=== PATIENT | female | born 1970 | race Caucasian/White ===

== ENCOUNTER 2017-01-22 08:43 | Emergency (ER) | payer BC ==
[2017-01-22 08:52] VITALS: BP 143/107
[2017-01-22] MEDS ORDERED: Morphine INJ* 4 MG/ML 1 ML SYRINGE IV ONE (09:22)
[2017-01-22] MEDS ORDERED: Ondansetron INJ* 2 MG/ML VIAL IV ONE (09:22)
[2017-01-22 10:07] LABS: Hematocrit 45 % (35-47); Hemoglobin 15.1 g/dl (12.0-16.0); Mean Corpuscular HGB Conc 34 g/dl (31-36); Mean Corpuscular Hemoglobin 33 pg (27-31); Mean Corpuscular Volume 97 fL (80-97); Mean Platelet Volume 10 um3 (7.4-10.4); Red Blood Count 4.65 10^6/ul (4.0-5.4); Red Cell Distribution Width 13 % (10.5-15); White Blood Count 10.2 10^3/ul (3.5-10.8)
[2017-01-22 10:26] LABS: Albumin 4.4 g/dL (3.2-5.2); BUN/Creatinine Ratio 14.5 (8-20); C Reactive Protein 2.17 mg/L (< 5.00); Calcium 9.5 mg/dL (8.6-10.3); EGFR Non-African American 74.7 (>60); Globulin 2.9 g/dL (2-4); Potassium 4.1 mmol/L (3.5-5.0); Total Bilirubin 0.6 mg/dL (0.2-1.0); Total Protein 7.3 g/dL (6.4-8.9)
[2017-01-22 11:04] LABS: Urine Bilirubin Negative (Negative); Urine Glucose Negative (Negative); Urine Nitrite Negative (Negative)
--- NOTE | 2017-01-22 11:14 | RAD ---
INDICATION: Arterial occlusion. Cyanotic hand COMPARISON: None TECHNIQUE: Duplex interrogation of the left upper extremity was performed FINDINGS: There is arterial patency throughout. The waveforms and velocities are normal. The palmar arch is patent. The prosthesis in CM per second are as follows: Common carotid artery-114; subclavian artery-101; axillary artery-98; brachial artery (proximal/mid/distal)-97, 103, 93; radial artery (proximal/mid/distal)-53, 51, 46; ulnar artery (proximal/mid/distal)-46, 51, 44 Lazaro arch (fifth digit)-37; pulmonary arch (first digit)-23 cm/s. Velocities in the contralateral (right) common and subclavian arteries are 89 and 107 cm second, respectively. IMPRESSION: NORMAL STUDY.
--- NOTE | 2017-01-22 12:41 | RAD ---
HISTORY: Left wrist and hand pain COMPARISONS: None VIEWS: 5, Frontal, lateral, and oblique views of the left wrist, with frontal and lateral views of the left hand FINDINGS: BONE DENSITY: Normal. BONES: There is no displaced fracture. JOINTS: There is no arthropathy. ALIGNMENT: There is no dislocation. SOFT TISSUES: Unremarkable. OTHER FINDINGS: None. IMPRESSION: NO ACUTE OSSEOUS INJURY OF THE LEFT WRIST AND LEFT HAND. IF SYMPTOMS PERSIST, RECOMMEND REPEAT IMAGING.
[2017-01-22] MEDS ORDERED: Acetaminophen TAB* 325 MG PO ONE (12:57)
[2017-01-22] MEDS ORDERED: Ibuprofen TAB* 600 MG PO ONE (12:57)
--- NOTE | 2017-01-22 14:08 | ED ---
Eder Cueto SooYoung, scribed for Hero Bejarano MD on 01/22/17 at 0905 . Upper Extremity Pain - HPI Summary HPI Summary: A 46 y/o F presents to ED with c/o worsening L hand pain onset two days ago. Associated sx: edema, decreased ROM, cool to touch onset yesterday. Pain radiates from L elbow down L hand. Pt reports no sx in LE or RUE. She is primarily R-hand dominant. Ice does not alleviate the pain. Denies having had an IV inserted over past few weeks; denies trauma. PMHx is negative for DM, DVT and HDL. Non-drinker. Smoker. Denies taking blood thinners. PMHx and SHx: tendonitis in arm; neck surgery. Pt works with metal. - History of Current Complaint Chief Complaint: EDExtremityUpper Stated Complaint: LT ARM NUMBNESS,SWELLING Time Seen by Provider: 01/22/17 09:01 Hx Obtained From: Patient Onset/Duration: Started Days Ago, Still Present Timing: Constant Severity Initially: Moderate Severity Currently: Moderate Pain Location: Elbow - L, Forearm - L, Hand - L Associated Signs & Symptoms: Positive: Swelling, Other - decreased ROM, cool to touch Related History: Dominant Hand Right - Allergies/Home Medications Allergies/Adverse Reactions: Allergies Allergy/AdvReac Type Severity Reaction Status Date / Time Amoxicillin Allergy Hives Verified 09/02/14 11:38 Azithromycin [From Zithromax] Allergy Hives Verified 09/02/14 11:38 Cephalexin Allergy THICK Verified 09/02/14 11:38 DISCHARGE Clarithromycin Allergy FACE RED Verified 09/02/14 11:38 [From Biaxin XL] AND PIMPLY Clavulanic Acid Allergy FAT LIPS Verified 09/02/14 11:38 [From Augmentin] Doxycycline Allergy Hives Verified 09/02/14 11:38 Hydrocodone Allergy FELT LIKE Verified 09/02/14 11:38 SHE WAS IN A STUPOR AND DID NOT WORK Levofloxacin [From Levaquin] Allergy Hives Verified 09/02/14 11:38 Metronidazole Allergy Dizziness Verified 09/02/14 11:38 TWO OTHER UNKNOWN MEDICATIONS Allergy SHAKY Uncoded 09/02/14 11:38 PMH/Surg Hx/FS Hx/Imm Hx Previously Healthy: No Endocrine/Hematology History: Denies: Hx Diabetes Cardiovascular History: Denies: Hx Hypertension, Hx Pacemaker/ICD Respiratory History: Denies: Hx Asthma History: Denies: Hx Dialysis, Hx Renal Disease Musculoskeletal History: Reports: Hx Tendonitis - RIGHT HAND Sensory History: Reports: Hx Contacts or Glasses - READING GLASSES Denies: Hx Hearing Aid Opthamlomology History: Reports: Hx Contacts or Glasses - READING GLASSES Neurological History: Reports: Hx Headaches - BEFORE AND DURING PERIOD, Hx Migraine - WHEN SNOW MELTS Psychiatric History: Denies: Hx Panic Disorder - Surgical History Surgery Procedure, Year, and Place: RIGHT ANKLE STABILIZATION(METAL PLACED)2006 , [place] Hx Anesthesia Reactions: No Infectious Disease History: No Infectious Disease History: Denies: Traveled Outside the [place] in Last 30 Days - Family History Known Family History: Positive: Other - DVTs - Social History Occupation: Employed Full-time Lives: With Family - friend Alcohol Use: Rare Hx Substance Use: No Substance Use Type: Reports: None Hx Tobacco Use: Yes Smoking Status (MU): Light Every Day Tobacco Smoker Type: Cigarettes Amount Used/How Often: 1/2 PPD Length of Time of Smoking/Using Tobacco: 20 + YEAR. Review of Systems Negative: Fever Positive: Myalgia - pain from L elbow to L hand, Decreased ROM, Edema Positive: Other - LUE cool to touch All Other Systems Reviewed And Are Negative: Yes Physical Exam - Summary Physical Exam Summary: The patient is well-nourished in MILD distress and in no acute pain. The skin is dry and skin color reflects adequate perfusion. HEENT: The head is normocephalic and atraumatic. The pupils are equal and reactive. The conjunctivae are clear and without drainage. Nares are patent and without drainage. Mouth reveals moist mucous membranes and the throat is without erythema and exudate. The external ears are intact. The ear canals are patent and without drainage. The tympanic membranes are intact. Neck is supple with full range of motion and non-tender. There are no carotid bruits. There is no neck vein distension. Respiratory: Chest is non-tender. Lungs are clear to auscultation and breath sounds are symmetrical and equal. Cardiovascular: Heart is regular rate and rhythm. There is no murmur or rub auscultated. There is no peripheral edema. Femoral pulses are symmetrical and equal. Abdomen: The abdomen is OBESE, soft and non-tender. There are normal bowel sounds heard in all four quadrants and there is no organomegaly palpated. Musculoskeletal: There is no back pain noted. There is no peripheral edema or calf tenderness elicited. RUE: GOOD PULSES AND ROM, BRISK CAP REFILL, WARM TO TOUCH. LUE: COOLNESS FROM ELBOW DISTALLY, COOL TO TOUCH, DECREASED ROM, CAP REFILL 3-4 SECONDS, CYANOSIS AT NAILBED; PALPATED BRACHIAL, RADIAL AND ULNAR PULSES. UNABLE TO ASSESS FUNCTION OF RADIAL, MEDIAN, AND ULNAR NERVE. UNABLE TO PRONATE AND SUPINATE ELBOW. Neurological: Patient is alert and oriented to person, place and time. Cranial nerves are grossly intact. Psychiatric: MILDLY ANXIOUS. Triage Information Reviewed: Yes Vital Signs On Initial Exam: Initial Vitals Temp Pulse Resp BP Pulse Ox 98.1 F 83 20 143/107 98 01/22/17 08:46 01/22/17 08:46 01/22/17 08:46 01/22/17 08:46 01/22/17 08:46 Vital Signs Reviewed: Yes Diagnostics - Vital Signs Vital Signs Temp Pulse Resp BP Pulse Ox 01/22/17 08:50 98.1 F 75 20 143/107 99 01/22/17 08:46 98.1 F 83 20 143/107 98 - Laboratory Lab Results: Lab Results 01/22/17 01/22/17 01/22/17 Range/Units 10:00 10:00 10:00 WBC 10.2 (3.5-10.8) 10^3/ul RBC 4.65 (4.0-5.4) 10^6/ul Hgb 15.1 (12.0-16.0) g/dl Hct 45 (35-47) % MCV 97 (80-97) fL MCH 33 H (27-31) pg MCHC 34 (31-36) g/dl RDW 13 (10.5-15) % Plt Count 208 (150-450) 10^3/ul MPV 10 (7.4-10.4) um3 Neut % (Auto) 50.7 (38-83) % Lymph % (Auto) 40.8 (25-47) % [place] % (Auto) 6.1 (1-9) % Eos % (Auto) 1.4 (0-6) % Baso % (Auto) 1.0 (0-2) % Absolute Neuts (auto) 5.2 (1.5-7.7) 10^3/ul Absolute Lymphs (auto) 4.2 (1.0-4.8) 10^3/ul Absolute Monos (auto) 0.6 (0-0.8) 10^3/ul Absolute Eos (auto) 0.1 (0-0.6) 10^3/ul Absolute Basos (auto) 0.1 (0-0.2) 10^3/ul Absolute Nucleated RBC 0.01 10^3/ul Nucleated RBC % 0.1 INR (Anticoag Therapy) 0.94 (0.89-1.11) APTT 27.5 (26.0-36.3) seconds Sodium (133-145) mmol/L Potassium (3.5-5.0) mmol/L Chloride (101-111) mmol/L Carbon Dioxide (22-32) mmol/L Anion Gap (2-11) mmol/L BUN (6-24) mg/dL Creatinine (0.51-0.95) mg/dL Est GFR ( Amer) (>60) Est GFR (Non-Af Amer) (>60) BUN/Creatinine Ratio (8-20) Glucose (70-100) mg/dL Lactic Acid 1.5 (0.5-2.0) mmol/L Calcium (8.6-10.3) mg/dL Total Bilirubin (0.2-1.0) mg/dL AST (13-39) U/L ALT (7-52) U/L Alkaline Phosphatase (34-104) U/L Total Creatine Kinase (10-223) U/L C-Reactive Protein (< 5.00) mg/L Total Protein (6.4-8.9) g/dL Albumin (3.2-5.2) g/dL Globulin (2-4) g/dL Albumin/Globulin Ratio (1-3) Urine Color Urine Appearance Urine pH (5-9) Ur Specific [place] (1.010-1.030) Urine Protein (Negative) Urine Ketones (Negative) Urine Blood (Negative) Urine Nitrate (Negative) Urine Bilirubin (Negative) Urine Urobilinogen (Negative) Ur Leukocyte Esterase (Negative) Urine Glucose (Negative) 01/22/17 01/22/17 Range/Units 10:00 10:50 WBC (3.5-10.8) 10^3/ul RBC (4.0-5.4) 10^6/ul Hgb (12.0-16.0) g/dl Hct (35-47) % MCV (80-97) fL MCH (27-31) pg MCHC (31-36) g/dl RDW (10.5-15) % Plt Count (150-450) 10^3/ul MPV (7.4-10.4) um3 Neut % (Auto) (38-83) % Lymph % (Auto) (25-47) % [place] % (Auto) (1-9) % Eos % (Auto) (0-6) % Baso % (Auto) (0-2) % Absolute Neuts (auto) (1.5-7.7) 10^3/ul Absolute Lymphs (auto) (1.0-4.8) 10^3/ul Absolute Monos (auto) (0-0.8) 10^3/ul Absolute Eos (auto) (0-0.6) 10^3/ul Absolute Basos (auto) (0-0.2) 10^3/ul Absolute Nucleated RBC 10^3/ul Nucleated RBC % INR (Anticoag Therapy) (0.89-1.11) APTT (26.0-36.3) seconds Sodium 136 (133-145) mmol/L Potassium 4.1 (3.5-5.0) mmol/L Chloride 108 (101-111) mmol/L Carbon Dioxide 23 (22-32) mmol/L Anion Gap 5 (2-11) mmol/L BUN 12 (6-24) mg/dL Creatinine 0.83 (0.51-0.95) mg/dL Est GFR ( Amer) 96.0 (>60) Est GFR (Non-Af Amer) 74.7 (>60) BUN/Creatinine Ratio 14.5 (8-20) Glucose 91 (70-100) mg/dL Lactic Acid (0.5-2.0) mmol/L Calcium 9.5 (8.6-10.3) mg/dL Total Bilirubin 0.60 (0.2-1.0) mg/dL AST 15 (13-39) U/L ALT 16 (7-52) U/L Alkaline Phosphatase 63 (34-104) U/L Total Creatine Kinase 47 (10-223) U/L C-Reactive Protein 2.17 (< 5.00) mg/L Total Protein 7.3 (6.4-8.9) g/dL Albumin 4.4 (3.2-5.2) g/dL Globulin 2.9 (2-4) g/dL Albumin/Globulin Ratio 1.5 (1-3) Urine Color Straw Urine Appearance Clear Urine pH 7.0 (5-9) Ur Specific [place] 1.008 L (1.010-1.030) Urine Protein Negative (Negative) Urine Ketones Negative (Negative) Urine Blood Negative (Negative) Urine Nitrate Negative (Negative) Urine Bilirubin Negative (Negative) Urine Urobilinogen Negative (Negative) Ur Leukocyte Esterase Negative (Negative) Urine Glucose Negative (Negative) Result Diagrams: 01/22/17 10:00 01/22/17 10:00 Lab Statement: Any lab studies that have been ordered have been reviewed, and results considered in the medical decision making process. - Radiology WRIST XR Xray Interpretation: No Acute Changes - IMPRESSION: NO ACUTE OSSEOUS INJURY OF THE LEFT WRIST AND LEFT HAND. IF SYMPTOMS PERSIST, RECOMMEND REPEAT IMAGING. Radiology Interpretation Completed By: Radiologist HAND XR Xray Interpretation: No Acute Changes - IMPRESSION: NO ACUTE OSSEOUS INJURY OF THE LEFT WRIST AND LEFT HAND. IF SYMPTOMS PERSIST, RECOMMEND REPEAT IMAGING. Radiology Interpretation Completed By: Radiologist - Ultrasound No standard instances Ultrasound Interpretation: No Acute Changes - UE Venous, IMPRESSION: Normal study. Ultrasound Interpretation Completed By: Radiologist Re-Evaluation - Re-Evaluation 1 Re-Evaluation Time: 11:29 Change: Improved Comment: Discussing diagnostic results with pt. Does not want any more pain meds. Upon brief PE: pain is located in thumb at the thenar eminence. FROM at wrist, referred pain in hypothenar eminence. Will order thumb and wrist XR. 2 Re-Evaluation Time: 12:58 Comment: Discussing XR results. Will D/C home with splint, naproxen; F/U with [facility], ortho. Course/Dx - Course Course Of Treatment: Pt is a 46 y/o F presenting with worsening L hand pain onset two days ago. Associated sx: edema, decreased ROM, cool to touch onset yesterday. Pain radiates from L elbow down L hand. Pt reports no sx in LE or RUE. Denies having had an IV inserted over past few weeks; denies trauma. PMHx is negative for DM, DVT and HDL. Non-drinker. Smoker. Denies taking blood thinners. PMHx and SHx: tendonitis in arm; neck surgery. Pt works with metal. 0915: Consult with radiology, Dr. Lindo, recommends arterial doppler of LUE. Pt given morphine, Zofran, motrin, tylenol in ED. Labs are WNL except elevated MCH. UA is nml except specific gravity of 1.008. Venous Doppler shows no acute finding. Wrist XR and Hand XR shows no acute finding. Will D/C home with splint , naproxen; advised to f/u with ortho. Pt voiced understanding. - Diagnoses Differential Diagnosis/HQI/PQRI: Positive: Other - vascular injury vs nerve injury, raynaud, median nerve entrapment, radial nerve entrapment, arthritis Provider Diagnoses: Left arm pain, Radiculopathy Discharge - Discharge Plan Condition: Stable Disposition: HOME Prescriptions: Naproxen TAB* [Naprosyn 250 mg TAB*] 500 mg PO BID #60 tab Patient Education Materials: Naproxen (By mouth), Splint Care (ED), Arm Pain ( ED) Forms: *Work Release Referrals: Clayton Qureshi MD [Primary Care Provider] - [facility] [Outside] Chuy Rendon MD [Medical Doctor] - 7 Days (Follow up with Dr. Rendon within the next week.) Additional Instructions: Follow up with Dr. Rendon, ortho, within the week. Please return to the ED if you experience new or worsening symptoms. The documentation as recorded by the Eder barnes SooYoung accurately reflects the service I personally performed and the decisions made by , Hero Bejarano MD.
== END 2017-01-22 14:34 | disposition home or self-care (01) ==
LOC: ED 08:43
DX: M79.602 Pain in left arm (principal); M54.10 Radiculopathy, site unspecified
CPT/HCPCS: 36415; 80053; 81003; 82550; 83605; 85025; 85610; 85730; 86140; 96374; 96375; 99282; A9270-GY; J2270; J2405

== ENCOUNTER 2023-08-07 07:36 | Inpatient (IN) ==
[2023-08-07 08:08] LABS: ABS Basophils 0.1 10^3/uL (0.0-0.1); ABS Eosinophils 0.1 10^3/uL (0.0-0.5); ABS Lymphocytes 3.1 10^3/uL (1.0-4.8); ABS Monocytes 0.4 10^3/uL (0.0-0.9); Eosinophil % 2.2 %; Hematocrit 43.3 % (35-45); Hemoglobin 14.8 g/dL (11.5-14.3); Lymphocyte % 45.8 %; Mean Corpuscular Hgb Conc 34.2 g/dL (31-36); Mean Corpuscular Volume 93.6 fL (80-97); Mean Platelet Volume 9.2 fL (7.5-11.2); Platelet Count 285 10^3/uL (150-450); Red Blood Count 4.63 10^6/uL (3.63-4.92); Red Cell Distribution Width 13.8 % (12-17); White Blood Count 6.9 10^3/uL (3.8-11.8)
[2023-08-07 08:14] LABS: INR 1.05 (0.83-1.13)
[2023-08-07 08:59] LABS: ALT 19 U/L (7-52); Albumin 4.3 g/dL (3.2-5.2); Albumin/Globulin Ratio 1.5 (1-3); Alkaline Phosphatase 76 U/L (35-149); Anion Gap 12 mmol/L (2-16); Blood Urea Nitrogen 13 mg/dL (6-24); CO2 Carbon Dioxide 22 mmol/L (22-32); Calcium 9.2 mg/dL (8.6-10.3); Chloride 104 mmol/L (101-111); Creatinine, Serum 0.91 mg/dL (0.51-0.95); Globulin 2.9 g/dL (2-4); Glucose 125 mg/dL (70-100); Sodium 138 mmol/L (135-145); Total Bilirubin 1.1 mg/dL (0.2-1.0); Total Protein 7.2 g/dL (6.4-8.9); eGFR CKD-EPI 76.4 (>60)
[2023-08-07 09:06] LABS: High Sens Troponin Baseline 5 pg/mL (<15)
[2023-08-07] MEDS ORDERED: Iohexol 350 (CONTRAST) 500 ML MDV IV ONE ×2 (09:16→10:06)
[2023-08-07 09:44] LABS: High Sensitivity Troponin 1 Hr 14 pg/mL (<15)
[2023-08-07 11:27] LABS: Potassium, Whole Blood 4.1 mmol/L (3.4-4.5)
[2023-08-07 14:57] LABS: High Sensitivity Troponin 3 Hr 391 pg/mL (<15)
[2023-08-07] MEDS ORDERED: Heparin - STEMI 5,000 UNITS/ML 1 ml VIAL IV ONE (15:26)
[2023-08-07] MEDS ORDERED: Senna TAB 8.6 mg TAB PO PRN (16:36)
[2023-08-07] MEDS ORDERED: Polyethylene Glycol 3350 17 GM PACKET PO PRN (16:36)
[2023-08-07] MEDS ORDERED: Ondansetron 4 mg VIAL 2 MG/ML 2 ml VIAL IV PRN (16:36)
[2023-08-07] MEDS ORDERED: Heparin DRIP 25,000 UNITS BAG 25,000 UNITS/250 ML BAG IV SCH (17:45)
[2023-08-07] MEDS ORDERED: Heparin 5000 UNITS/ML 1 mL VIAL IV SCH (18:00)
[2023-08-07 18:17] LABS: ABS Basophils 0.1 10^3/uL (0.0-0.1); ABS Eosinophils 0.2 10^3/uL (0.0-0.5); ABS Lymphocytes 4.1 10^3/uL (1.0-4.8); ABS Monocytes 0.7 10^3/uL (0.0-0.9); ABS Neutrophils 4.9 10^3/uL (1.5-7.6); ABS Nucleated RBC 0.01 10^3/ul; Eosinophil % 1.8 %; Hematocrit 45.7 % (35-45); Hemoglobin 15.6 g/dL (11.5-14.3); Lymphocyte % 40.8 %; Mean Corpuscular Hemoglobin 31.8 pg (27-33); Mean Corpuscular Hgb Conc 34.2 g/dL (31-36); Mean Corpuscular Volume 93.1 fL (80-97); Mean Platelet Volume 9.2 fL (7.5-11.2); Nucleated Red Blood Cells % 0.1 %/100WBC (0.0-0.8); Platelet Count 319 10^3/uL (150-450); Red Blood Count 4.91 10^6/uL (3.63-4.92); Red Cell Distribution Width 13.8 % (12-17); White Blood Count 9.9 10^3/uL (3.8-11.8)
[2023-08-07 18:20] LABS: Cholesterol 312 mg/dL; HDL Cholesterol 58.8 mg/dL; LDL Cholesterol 219 mg/dL; Triglycerides 169 mg/dL
[2023-08-07 18:35] LABS: Creatinine, Serum 0.83 mg/dL (0.51-0.95); eGFR CKD-EPI 85.3 (>60)
[2023-08-08 06:30] LABS: Hemoglobin 13.7 g/dL (11.5-14.3); Mean Corpuscular Hemoglobin 32.1 pg (27-33); Mean Corpuscular Hgb Conc 34.2 g/dL (31-36); Mean Corpuscular Volume 93.7 fL (80-97); Mean Platelet Volume 9.2 fL (7.5-11.2); Platelet Count 278 10^3/uL (150-450); Red Blood Count 4.27 10^6/uL (3.63-4.92); Red Cell Distribution Width 13.5 % (12-17); White Blood Count 5.5 10^3/uL (3.8-11.8)
[2023-08-08 06:51] LABS: Calcium 8.6 mg/dL (8.6-10.3); Creatinine, Serum 0.84 mg/dL (0.51-0.95); Potassium 4.2 mmol/L (3.5-5.0); eGFR CKD-EPI 84.1 (>60)
[2023-08-08] MEDS ORDERED: Dextran 70/Hypromellose Tears Eye Drops 15 ml BTL (for Artificials Tears) BOTH EYES PRN (08:01)
[2023-08-08 10:30] LABS: C Reactive Protein 2.18 mg/L (<8.01)
[2023-08-08 10:58] LABS: Activated Partial Thrombo Time 53.5 seconds (26.0-38.0)
[2023-08-08 11:55] LABS: Erythrocyte Sed Rate 3 mm/Hr (0-29)
[2023-08-08 12:04] LABS: High Sensitivity Troponin 1 Hr 199 pg/mL (<15)
[2023-08-08] MEDS ORDERED: Regadenoson 0.4 MG/5 ML SYRINGE ONE (15:04)
[2023-08-08 16:57] VITALS: BP 149/53
== END 2023-08-08 17:45 | disposition home health service (06) | DRG 282 ==
LOC: EDHOLD 07:36 → ED 07:36 → OBSVTOIN 16:36 → MEDTELE 08-08 08:28
PROVIDERS: ADMIT Internal Medicine; ATTEND Internal Medicine